=== PATIENT | male | born 1930 | race Caucasian/White ===

== ENCOUNTER 2017-08-17 14:05 | Outpatient (CLI) | payer MEDICARE, OTHER ==
--- NOTE | 2017-08-17 16:29 | Diagnostic Imaging Report ---
LEROY WHARTON [facility] [id number] [facility] [address] [address] Report Submission Date: Aug 17, 2017 2:54:57 PM SANITATION ENGINEER Patient Study Name: RAVI SCHAEFFER Date: Aug 17, 2017 2:24:00 PM SANITATION ENGINEER Modality Type: DX Gender: M Description: PELVIS,CHEST : [birth year] Institution: [facility] Physician: LEROY WHARTON Examination: Plain film pelvis History: PAIN WITH NO KNOWN INJURY X 1 MONTH (Hx) Comparison exams: None provided Findings: Single view of the pelvis demonstrate normal cortical margins. Mild articular spurring. No fracture. No dislocation. Superior and inferior pubic rami and iliac wings are without abnormality. Pelvic phleboliths. Lumbar degenerative changes. Impression: Mild degenerative changes. No acute appearing osseous process. Electronically signed on Aug 17, 2017 2:54:57 PM SANITATION ENGINEER by: Roshan MEYER
--- NOTE | 2017-08-17 16:30 | Diagnostic Imaging Report ---
LEROY WHARTON [facility] [address] [facility] [address] Report Submission Date: Aug 17, 2017 2:52:11 PM RN ADVICE Patient Study Name: RAVI SCHAEFFER Date: Aug 17, 2017 2:29:01 PM RN ADVICE Modality Type: DX Gender: M Description: PELVIS : [birth year] Institution: [facility] Physician: LEROY WHARTON Examination: Plain film right hip History: PAIN AND SWELLING X 2 DAYS WITH NO KNOWN INJURY (Hx) Comparison exams: None provided Findings: 2 views of the right hip demonstrate normal cortical margins. Mild articular spurring. No fracture no dislocation. No soft tissue abnormality. Pelvic phleboliths. Impression: Mild degenerative changes. No acute appearing osseous abnormality. Electronically signed on Aug 17, 2017 2:52:11 PM RN ADVICE by: Roshan MEYER
--- NOTE | 2017-08-17 16:31 | Diagnostic Imaging Report ---
LEROY WHARTON [facility] [address] [facility] [address] [address] Report Submission Date: Aug 17, 2017 2:50:31 PM MAIL DISTRIBUTOR Patient Study Name: RAVI SCHAEFFER Date: Aug 17, 2017 2:34:55 PM MAIL DISTRIBUTOR Modality Type: DX Gender: M Description: UPPER EXTREMITY : [birth year] Institution: [facility] Physician: LEROY WHARTON Examination: Plain film left elbow History: PAIN AND SWELLING X 2 DAYS WITH NO KNOWN INJURY (Hx) Comparison exams: None provided Findings: 3 views of the left elbow demonstrate normal cortical margins. No fracture. No dislocation. Radial head is within normal limits. No joint effusion Impression: No acute osseous abnormality. Electronically signed on Aug 17, 2017 2:50:31 PM MAIL DISTRIBUTOR by: Roshan MEYER
== END 2017-08-17 14:06 ==
LOC: RAD 14:05
PROVIDERS: ATTEND Nurse Practitioner Family
DX: M25.551 Pain in right hip (principal); M70.22 Olecranon bursitis, left elbow
CPT/HCPCS: 72170; 73080; 73502

== ENCOUNTER 2018-01-03 19:05 | Emergency (ER) | payer MEDICARE, OTHER ==
[2018-01-03] MEDS ORDERED: DIPH,PERTUSS(ACELL),TET VAC/PF 0.5 ML DISP.SYRIN IM ONE (19:31)
--- NOTE | 2018-01-03 19:31 | ED Physician Documentation ---
General Adult - HISTORIAN Historian: patient - HPI Stated Complaint: laceration Chief Complaint: Laceration/Recheck/Suture Onset: hours (1) Timing: still present Severity: mild Further Comments: yes (He was cutting with a box knife and cut his index finger left hand. He has tried to stop the bleeding. NO other injury. Is able to use his hand fully. Denies any loss of senation.) Last known Well Code/Unknown Code: Unknown - ROS CONST: no problems EYES/ENT: none CVS/RESP: none GI/: none - PAST HX Past History: other (prostate issue ) Surgeries/Procedures: other (knee replacement ) Immunizations: tetanus Allergies/Adverse Reactions: Allergies Allergy/AdvReac Type Severity Reaction Status Date / Time Penicillins Allergy Severe Anaphylaxis Verified 01/03/18 19:24 Home Medications: Ambulatory Orders Medication Instructions Recorded Doxazosin Mesylate [Cardura] 4 mg PO D 01/03/18 - SOCIAL HX Smoking History: non-smoker Alcohol Use: none Drug Use: none - FAMILY HX Family History: No - VITAL SIGNS Vital Signs: Vital Signs Temp Pulse Resp BP Pulse Ox 69 16 123/56 96 01/03/18 19:06 01/03/18 19:06 01/03/18 19:06 01/03/18 19:06 - REVIEWED ASSESSMENTS Nursing Assessment Reviewed: Yes Vitals Reviewed: Yes Procedures Wound Location: upper extremity (left hand index finger ) Wound's Depth, Shape: superficial Wound Explored: no foreign body removed Anesthesia: 2% Lidocaine (5 cc ) Wound Repaired With: sutures Suture Size/Type: 4:0 (5 sutures ) Sterile Dressing Applied?: No (dressing ) Splint Applied?: Yes Sling Applied?: No ED Results Lab/Radiology - Orders Orders: ED Orders Category Date Time Status Cleanse with NS and Betadine 1T Care 01/03/18 19:31 Active Diph,Pertuss(Acell),Tet Vac/Pf [Adacel] Med 01/03/18 19:31 Discontinued 0.5 ml IM .ONCE ONE Lidocaine 2% 20ml Vial [Xylocaine] Med 01/03/18 19:38 Discontinued 400 mg .ROUTE .STK-MED ONE General Adult Physical Exam - PHYSICAL EXAM GENERAL APPEARANCE: no distress EENT: eye inspection normal NECK: normal inspection RESPIRATORY: no resp distress, chest non-tender, breath sounds normal CVS: reg rate & rhythm, heart sounds normal, equal pulses, no murmur ABDOMEN: soft BACK: normal inspection SKIN: warm/dry, normal color, other (laceration on left hand index finger approx 3 cm - Sensation + cap refill + FROM. ) EXTREMITIES: non-tender, normal range of motion, no evidence of injury NEURO: oriented X3, CN's nml as tested, motor nml, sensation nml, mood/affect nml, cognition normal Discharge Clincal Impression: Laceration of finger Qualifiers: Encounter type: initial encounter Finger: middle finger Damage to nail status: without damage Foreign body presence: without foreign body Laterality: left Qualified Code(s): S61.213A - Laceration without foreign body of left middle finger without damage to nail, initial encounter Referrals: Lilly Olguin FNP [Primary Care Provider] - 2 Days Additional Instructions: 1. Keep area clean and dry 2. See PCP in 7-10 days for suture removal 3. Notify PCP of any redness , drainage, swelling or other pain or concerns 4. Return to ER For any other concerns Condition: Stable Disposition: 01 HOME, SELF-CARE Decision to Admit: NO Date of Decison to Admit: 01/03/18 Decision Time: 20:04
[2018-01-03] MEDS ORDERED: Lidocaine 2% 20ml Vial IP ONE (19:35)
[2018-01-03] MEDS ORDERED: NEOMYCIN/BACITRACIN/POLYMYXINB 1 EACH OINT.PACK TP ONE (19:35)
[2018-01-03] MEDS ORDERED: Lidocaine 2% 20ml Vial ONE (19:38)
[2018-01-03 19:41] VITALS: BP 123/56
== END 2018-01-03 20:11 | disposition home or self-care (01) ==
LOC: ED 19:05
DX: S61.213A Laceration without foreign body of left middle finger without damage to nail, initial encounter (principal); W26.0XXA Contact with knife, initial encounter; Y92.9 Unspecified place or not applicable; Y93.9 Activity, unspecified; Y99.9 Unspecified external cause status
CPT/HCPCS: 12002; 90471; 90715; 96372